=== PATIENT | male | born 1975 | race Caucasian/White ===

== ENCOUNTER 2022-10-04 13:15 | Emergency (ER) | payer OTHER ==
[~2022-10-04] VITALS: Ht 162.6 cm; Wt 73.9 kg
[2022-10-04] MEDS ORDERED: INTESTINEX680 M1 PO (16:07)
[2022-10-04] MEDS ORDERED: CLINDAMYCIN HC300 MG PO (16:07)
== END 2022-10-04 16:20 ==
LOC: ER 13:15
DX: L02.01 Cutaneous abscess of face (principal)

== ENCOUNTER 2023-10-03 10:06 | Outpatient (CLI) | payer OTHER ==
[~2023-10-03 10:06] MED LIST: ACETAMINOPHEN500 M2; CLINDAMYCIN HC300 MG PO; INTESTINEX680 M1 PO
== END 2023-10-03 10:24 | disposition home or self-care (01) ==
LOC: RAD 10:06
PROVIDERS: ATTEND Physical Medicine & Rehabilitation Hospice and Palliative Medicine
DX: M79.642 Pain in left hand (principal); M79.672 Pain in left foot; M19.042 Primary osteoarthritis, left hand; R22.42 Localized swelling, mass and lump, left lower limb

== ENCOUNTER 2024-01-16 07:26 | Emergency (ER) | payer OTHER ==
[~2024-01-16] VITALS: Ht 182.9 cm; Wt 79.8 kg
== END 2024-01-16 08:57 | disposition home or self-care (01) ==
LOC: ER 07:27
DX: N49.2 Inflammatory disorders of scrotum (principal)

== ENCOUNTER → 2024-06-17 | Emergency (ER) | payer OTHER ==
[~2024-06-17] VITALS: Ht 182.9 cm; Wt 77.1 kg
[~2024-06-17] MED LIST changes: +CEFTRIAXONE SODIUM 1,000 MG VIAL IM STA; +CEFTRIAXONE SODIUM 1,000 MG VIAL ONE; +KETOROLAC TROMETHAMINE 30 MG VIAL IM STA; +KETOROLAC TROMETHAMINE 30 MG VIAL ONE
== END | disposition home or self-care (01) ==
LOC: ER 07:30
DX: L02.411 Cutaneous abscess of right axilla (principal)

== ENCOUNTER 2025-07-14 07:43 | Outpatient (CLI) | payer OTHER ==
[~2025-07-14 07:43] MED LIST changes: -CEFTRIAXONE SODIUM 1,000 MG VIAL IM STA; -CEFTRIAXONE SODIUM 1,000 MG VIAL ONE; -KETOROLAC TROMETHAMINE 30 MG VIAL IM STA; -KETOROLAC TROMETHAMINE 30 MG VIAL ONE
== END 2025-07-14 07:45 | disposition home or self-care (01) ==
LOC: SONOGRAMA 07:43
PROVIDERS: ATTEND Physical Medicine & Rehabilitation Hospice and Palliative Medicine
DX: M79.672 Pain in left foot (principal); M76.62 Achilles tendinitis, left leg